=== PATIENT | male | born 1940 | race Caucasian/White ===

== ENCOUNTER → 2016-11-10 | Outpatient (CLI) | payer MEDICARE ==
[~2016-11-10] MED LIST: ASPI81TA82 PO; ATEN-100 PO; CAPT50TA PO; CYAN100015 PO; CYCL-36 PO; FERR83TA PO; FISH1000 PO; LORT7.5T3 PO; MEVA40TA PO; NAPR500 PO; NORV5TAB PO; SODI325T PO
== END ==
LOC: TMNT 16:23
PROVIDERS: ATTEND Internal Medicine Nephrology
DX: N18.3 Chronic kidney disease, stage 3 (moderate) (principal); R80.9 Proteinuria, unspecified
CPT/HCPCS: 97802

== ENCOUNTER → 2017-08-01 | Outpatient (CLI) | payer MEDICARE | LOC: PHRSP 09:10 | DX: R06.2 Wheezing (principal); R06.00 Dyspnea, unspecified | CPT/HCPCS: 94060; 94726; 94729 ==

== ENCOUNTER 2017-08-04 11:37 | Emergency (ER) | payer MEDICARE ==
[~2017-08-04] VITALS: Ht 175.3 cm; Wt 107.0 kg
[2017-08-04 11:50] VITALS: BP 135/60; PULSE 50; RESP 16; TEMP 97.3; O2SAT 96
[2017-08-04] MEDS ORDERED: CALC0.25 PO (12:56)
[2017-08-04] MEDS ORDERED: KRIL1000 PO (12:56)
[2017-08-04] MEDS ORDERED: VITATAB43 PO (12:56)
[2017-08-04] MEDS ORDERED: SODI650T PO (12:56)
[2017-08-04] MEDS ORDERED: ISOS30TA3 PO (12:56)
[2017-08-04] MEDS ORDERED: ASPI-516 CHEW (12:56)
[2017-08-04] MEDS ORDERED: VALS1TAB65 PO (12:56)
[2017-08-04] MEDS ORDERED: CARV25TA PO (12:56)
[2017-08-04] MEDS ORDERED: MULTTAB67 PO (12:56)
[2017-08-04] MEDS ORDERED: HYDR-3801 PO (12:56)
[2017-08-04] MEDS ORDERED: FURO20TA PO (12:56)
[2017-08-04] MEDS ORDERED: TEST1GEL10 TOPICAL (12:56)
[2017-08-04] MEDS ORDERED: ERGO2000 PO (12:56)
[2017-08-04] MEDS ORDERED: TAMS0.4C4 PO (12:56)
[2017-08-04] MEDS ORDERED: CLON0.1T PO (12:56)
[2017-08-04] MEDS ORDERED: AMLO5TAB2 PO (12:56)
--- NOTE | 2017-08-04 12:57 | RADRPT ---
EXAM DATE/TIME: 08/04/2017 12:34 [facility] COMPARISON: No previous studies available for comparison. INDICATIONS : Fall, right elbow pain. MEDICAL HISTORY : None. SURGICAL HISTORY : None. ENCOUNTER: Initial ACUITY: 2 days PAIN SCORE: 10/10 LOCATION: Right elbow FINDINGS: Multiple views of the elbow were obtained and demonstrate degenerative change in the radial carpal an d ulnar trochlear joints with joint space loss, sclerosis and mild spurring. There is no acute fractu re or malalignment. There is no evidence of a joint effusion. There is mild soft tissue prominence of the olecranon. CONCLUSION: 1. No acute fracture or malalignment. 2. Moderate osteoarthritic change. Ab Garduno MD on August 04, 2017 at 12:52 Board Certified Radiologist. This report was verified electronically.
[2017-08-04] MEDS ORDERED: LIDOCAINE HCL 1% 20 ML VIAL INFIL ONE (13:30)
[2017-08-04] MEDS ORDERED: oxyCODONE/ACETAMINOPHEN 5 MG/325 MG TAB PO ONE (13:30)
[2017-08-04] MEDS ORDERED: DIPHTH/TETANUS/ACEL PERTUSSIS (BOOSTER) 0.5 ML VIAL/PFS IM ONE (13:30)
[2017-08-04] MEDS ORDERED: LIDOCAINE HCL 1% PF 10 ML VIAL INFIL ONE (13:45)
--- NOTE | 2017-08-04 13:54 | RADRPT ---
EXAM DATE/TIME: 08/04/2017 13:44 [facility] COMPARISON: No previous studies available for comparison. INDICATIONS : Trauma. Fell and hit head. Right forehead laceration. RADIATION DOSE: 64.13 CTDIvol (mGy) MEDICAL HISTORY : Hypertension. Myocardial infarction. SURGICAL HISTORY : Colon resection. ENCOUNTER: Initial ACUITY: 1 day PAIN SCALE: 0/10 LOCATION: Right cranial TECHNIQUE: Multiple contiguous axial images were obtained of the head. Using automated exposure control and adj ustment of the mA and/or kV according to patient size, radiation dose was kept as low as reasonably a chievable to obtain optimal diagnostic quality images. DICOM format image data is available electro nically for review and comparison. FINDINGS: CEREBRUM: The ventricles are normal for age. No evidence of midline shift, mass lesion, hemorrhage or acute in farction. No extra-axial fluid collections are seen. POSTERIOR FOSSA: The cerebellum and brainstem are intact. The 4th ventricle is midline. The cerebellopontine angle i s unremarkable. EXTRACRANIAL: The visualized portion of the orbits is intact. SKULL: The calvaria is intact. No evidence of skull fracture. CONCLUSION: Normal examination for a patient of this age. Kj Guardado MD on August 04, 2017 at 13:51 Board Certified Radiologist. This report was verified electronically.
[2017-08-04] MEDS ORDERED: PERC5TAB12 PO (14:02)
--- NOTE | 2017-08-04 14:02 | PD ---
HPI Chief Complaint: Fall Time Seen by Provider: 12:45 Travel History International Travel<30 days: No Contact w/Intl Traveler<30days: No Traveled to known affect area: No History of Present Illness HPI 77-year-old male complains of pain in the right elbow on the right forehead. Yesterday he fell in a parking lot landing on the right elbow and right forehead. There is bleeding from the right forehead overnight. The pain in the right elbow has been constant and worse with palpation and range of motion. No loss of consciousness. No use of anticoagulants aside from aspirin. PFSH Past Medical History Hx Anticoagulant Therapy: Yes (ASA 81MG DAILY) Arthritis: Yes (KNEES RIGHT HAND) Asthma: No Autoimmune Disease: No Blood Disorders: No Anxiety: No Depression: No Heart Rhythm Problems: No Cancer: Yes (COLON/CHEMO) Cardiovascular Problems: Yes High Cholesterol: No Chemotherapy: Yes (spring) Chest Pain: No Congestive Heart Failure: No COPD: No Cerebrovascular Accident: No Diminished Hearing: No GERD: No Glaucoma: No Headaches: No Hepatitis: No Hiatal Hernia: No Hypertension: Yes Kidney Stones: No Medical other: Yes (MDS/KIDNEY DISEASE) Immunizations Current: No Myocardial Infarction: Yes (1991) Radiation Therapy: No Renal Failure: No Seizures: No Sickle Cell Disease: No Sleep Apnea: Yes (STOPS BREATHING FOR ABOUT 15 SECONDS) Thyroid Disease: No Ulcer: No Tetanus Vaccination: Unknown Influenza Vaccination: No Past Surgical History Abdominal Surgery: Yes (COLON RESECTION 2001) AICD: No Cardiac Surgery: Yes (CABG TIMES 2) Ear Surgery: No Endocrine Surgery: No Eye Surgery: No Genitourinary Surgery: No Gynecologic Surgery: No Neurologic Surgery: No Oral Surgery: Yes (WISDOM TEETH REMOVED) Pacemaker: No Thoracic Surgery: No Other Surgery: Yes (RIGHT KNEE REPLACEMENT) Social History Alcohol Use: Yes (RARELY) Tobacco Use: No Substance Use: No Allergies-Medications (Allergen,Severity, Reaction): Coded Allergies: oxytetracycline (Unverified Allergy, Severe, Rash, 08/04/17) Reported Meds & Prescriptions Reported Meds & Active Scripts Active Percocet (Oxycodone-Acetaminophen) 5-325 mg Tab 1 Tab PO Q6H PRN Reported Calcitriol 0.25 Mcg Cap 0.25 Mcg PO PRN Vitamin C88-Trxvr Acid (Cobalamine Combinations) 500-400 Mcg Tab Unknown Dose PO DAILY Krill Oil 1,000 Mg Cap Unknown Dose PO DAILY Multiple Vitamin 1 Tab 1 Tab PO DAILY Testosterone Topical (Testosterone) 10 Mg/0.5 Gm Gel 1 Gm TOPICAL DAILY 10 mg/actuation Sodium Bicarbonate 650 Mg Tab 650 Mg PO TIDPC Aspirin 81 Mg Chew 81 Mg CHEW DAILY Vitamin D2 (Ergocalciferol) 2,000 Unit Tab 2,000 Units PO DAILY Tamsulosin (Tamsulosin HCl) 0.4 Mg Cap 0.4 Mg PO DAILY Isosorbide Mononitrate ER (Isosorbide Mononitrate) 30 Mg Hilda 30 Mg PO TID Furosemide 20 Mg Tab 20 Mg PO PRN Hydralazine (Hydralazine HCl) 100 Mg Tab 100 Mg PO QID Take with meals Amlodipine (Amlodipine Besylate) 5 Mg Tab 5 Mg PO BID Valsartan 160 Mg Tab 160 Mg PO BID Clonidine (Clonidine HCl) 0.1 Mg Tab 0.1 Mg PO TID Carvedilol 25 Mg Tab 50 Mg PO BID Review of Systems Except as stated in HPI: all other systems reviewed are Neg General / Constitutional: No: Fever Physical Exam Narrative GENERAL: 77-year-old male pleasant well-nourished well-developed SKIN: Warm and dry. HEAD: Atraumatic. Normocephalic. Minute laceration right forehead with a pulsatile bleed. The right forehead also has about a 1 cm curvilinear laceration overlying the lateral aspect of the right eyebrow. Minimal ecchymosis adjacent to the contusion. EYES: Pupils equal and round. No scleral icterus. No injection or drainage. ENT: No nasal bleeding or discharge. Mucous membranes pink and moist. NECK: Trachea midline. No JVD. CARDIOVASCULAR: Regular rate and rhythm. RESPIRATORY: No accessory muscle use. Clear to auscultation. Breath sounds equal bilaterally. GASTROINTESTINAL: Abdomen soft, non-tender, nondistended. Hepatic and splenic margins not palpable. MUSCULOSKELETAL: No gross deformity about the right elbow however there is pain with very slight range of motion. 2+ radial artery pulses bilaterally. Handgrip is intact bilaterally. NEUROLOGICAL: Awake and alert. No obvious cranial nerve deficits. Motor grossly within normal limits. Five out of 5 muscle strength in the arms and legs. Normal speech. PSYCHIATRIC: Appropriate mood and affect; insight and judgment normal. Data Data Last Documented VS Vital Signs Date Time Temp Pulse Resp B/P (MAP) Pulse Ox O2 Delivery O2 Flow Rate FiO2 08/04/17 12:57 Room Air 08/04/17 11:50 97.3 50 16 135/60 (85) 96 VS reviewed Orders Orders Elbow, Complete (4 Vws) (08/04/17 ) Ice/Cold Pack (08/04/17 12:06) Ct Brain W/O Iv Contrast(Rout) (08/04/17 13:02) Hoim-Rgl-Oanifc (Booster) Inj (Boostrix (08/04/17 13:30) Oxycodone-Acetamin 5-325 Mg (Percocet (08/04/17 13:30) Lidocaine Pf 1% Inj (Xylocaine-Mpf 1% In (08/04/17 13:45) Ed Discharge Order (08/04/17 14:02) MDM Medical Decision Making Medical Screen Exam Complete: Yes Emergency Medical Condition: Yes Medical Record Reviewed: Yes Differential Diagnosis Fall, skull fracture, subdural hemorrhage, Narrative Course Last [address] 08/04/17 1302 Signed Impressions: Service Date/Time: Friday, August 04, 2017 13:44 - CONCLUSION: Normal examination for a patient of this age. Kj Guardado MD Elbow X-Ray 08/04/17 0000 Signed Impressions: Service Date/Time: Friday, August 04, 2017 12:34 - CONCLUSION: 1. No acute fracture or malalignment. 2. Moderate osteoarthritic change. Ab Garduno MD The patient has a right upper extremity sling and this has provided him with some pain control. Follow up with orthopedics may be some benefit for the patient. Laceration repair by GRUPO Schmidt. Diagnosis Primary Impression: Fall Qualified Codes: W19.XXXA - Unspecified fall, initial encounter Additional Impressions: Laceration of forehead Qualified Codes: S01.81XA - Laceration without foreign body of other part of head, initial encounter Contusion of elbow, right Qualified Codes: S50.01XA - Contusion of right elbow, initial encounter Referrals: Stanley Morales Jr., MD 2 days Med/Other Pt SpecificInfo: Prescription(s) given Scripts Oxycodone-Acetaminophen (Percocet) 5-325 mg Tab 1 TAB PO Q6H Y for PAIN SCALE 6 TO 10, #12 TAB 0 Refills Prov: Matt Luque MD 08/04/17 Disposition: 01 DISCHARGE HOME Condition: Stable Matt Luque MD Aug 04, 2017 14:02
--- NOTE | 2017-08-04 14:27 | PD ---
Data Data Last Documented VS Vital Signs Date Time Temp Pulse Resp B/P (MAP) Pulse Ox O2 Delivery O2 Flow Rate FiO2 08/04/17 12:57 Room Air 08/04/17 11:50 97.3 50 16 135/60 (85) 96 Orders Orders Elbow, Complete (4 Vws) (08/04/17 ) Ice/Cold Pack (08/04/17 12:06) Ct Brain W/O Iv Contrast(Rout) (08/04/17 13:02) Afqn-Xwi-Ahvrec (Booster) Inj (Boostrix (08/04/17 13:30) Oxycodone-Acetamin 5-325 Mg (Percocet (08/04/17 13:30) Lidocaine Pf 1% Inj (Xylocaine-Mpf 1% In (08/04/17 13:45) Ed Discharge Order (08/04/17 14:02) MDM Medical Record Reviewed: Yes Supervised Visit with KARINA: No Procedures Procedure Narrative LACERATION LOCATION: Right forehead LENGTH: 1.5 cm NUMBER OF STITCHES/ANGÉLICA: [3 REPAIR: The area of the laceration was prepped with Betadine and sterilely draped. The laceration was infiltrated with 1% lidocaine. The wound was copiously irrigated and explored without evidence of foreign body, tendon injury or neurovascular injury. The wound was closed using 6-0 Prolene simple interrupted. This was a single layer repair. A sterile dressing was applied. The patient was advised to keep the dressing clean and dry. Patient tolerated the procedure well. LACERATION LOCATION: Right forehead LENGTH: 1 cm NUMBER OF STITCHES/ANGÉLICA: [2 REPAIR: The area of the laceration was prepped with Betadine and sterilely draped. The laceration was infiltrated with 1% lidocaine. The wound was copiously irrigated and explored without evidence of foreign body, tendon injury or neurovascular injury. The wound was closed using 6-0 Prolene simple interrupted. This was a single layer repair. A sterile dressing was applied. The patient was advised to keep the dressing clean and dry. Patient tolerated the procedure well. Diagnosis Primary Impression: Fall Qualified Codes: W19.XXXA - Unspecified fall, initial encounter Additional Impressions: Laceration of forehead Qualified Codes: S01.81XA - Laceration without foreign body of other part of head, initial encounter Contusion of elbow, right Qualified Codes: S50.01XA - Contusion of right elbow, initial encounter Referrals: Stanley Morales Jr., MD 2 days Nidia Jacobs MD (PCP) call for appointment Patient Instructions: General Instructions, Laceration (ED), Fall Prevention for Older Adults (ED), Contusion in Adults (ED) Departure Forms: Tests/Procedures Scripts Oxycodone-Acetaminophen (Percocet) 5-325 mg Tab 1 TAB PO Q6H Y for PAIN SCALE 6 TO 10, #12 TAB 0 Refills Prov: Matt Luque MD 08/04/17 Disposition: 01 DISCHARGE HOME Condition: Stable Lg Schmidt Aug 04, 2017 14:27
[2017-08-04 14:43] VITALS: BP 130/55; RESP 16
== END 2017-08-04 14:48 | disposition home or self-care (01) ==
LOC: PHED 11:37
DX: S01.81XA Laceration without foreign body of other part of head, initial encounter (principal); S50.01XA Contusion of right elbow, initial encounter; I10 Essential (primary) hypertension; W19.XXXA Unspecified fall, initial encounter; Y92.481 Parking lot as the place of occurrence of the external cause; Z79.82 Long term (current) use of aspirin; Z23 Encounter for immunization
CPT/HCPCS: 12011; 70450; 73080; 90471; 90715